=== PATIENT | female | born 1965 | race Two or more races ===

== ENCOUNTER 2017-09-18 12:39 | Emergency (ER) | payer SELFPAY ==
[2017-09-18 12:47] VITALS: TEMP 98.8; O2SAT 95
--- NOTE | 2017-09-18 13:33 | EDPHY ---
H & P Stated Complaint: cough x 3 weeks/body aches Time Seen by Provider: 09/18/17 13:33 HPI/ROS: CHIEF COMPLAINT: [ ] HISTORY OF PRESENT ILLNESS: [Need 4: Location, Duration, Severity, Quality, Context, Timing Modifying Factors, Associated S&S] REVIEW OF SYSTEMS: A comprehensive 10 point review of systems is otherwise negative aside from elements mentioned in the history of present illness. Source: Patient Exam Limitations: No limitations - Personal History LMP (Females 10-55): Now Current Tetanus/Diphtheria Vaccine: Yes - Medical/Surgical History Hx Asthma: Yes Hx Chronic Respiratory Disease: No Hx Diabetes: No Hx Cardiac Disease: Yes Hx Renal Disease: No Hx Cirrhosis: No Hx Alcoholism: No Hx HIV/AIDS: No Hx Splenectomy or Spleen Trauma: No Other PMH: some type of congenitao cardiac issue - Social History Smoking Status: Never smoked - Physical Exam Exam: General Appearance: [Alert, no distress] Eyes: [Pupils equal and round no pallor or injection] ENT, Mouth: [Mucous membranes moist] Respiratory: [There are no retractions, lungs are clear to auscultation] Cardiovascular: [Regular rate and rhythm] Gastrointestinal: [Abdomen is soft and nontender, no masses, bowel sounds normal] Neurological: [A&O, normal motor function, normal sensory exam, normal cranial nerves] Skin: [Warm and dry, no rashes] Musculoskeletal: [Neck is supple nontender] Extremities: [symmetrical, full range of motion] Psychiatric: [Patient is oriented X 3, there is no agitation] Constitutional: Initial Vital Signs Temperature (C) 37.1 C 09/18/17 12:42 Heart Rate 84 09/18/17 12:42 Respiratory Rate 18 09/18/17 12:42 Blood Pressure 117/54 L 09/18/17 12:42 O2 Sat (%) 95 09/18/17 12:42 O2 Delivery Mode Room Air Allergies/Adverse Reactions: No Known Allergies Allergy (Unverified 09/18/17 12:41) Home Medications: Medication Instructions Recorded Asmanex 09/18/17 Ventolin Hfa 09/18/17 Medical Decision Making - Data Points Laboratory Results: 09/18/17 12:50 Nasal Influenza A PCR Pending Nasal Influenza B PCR Pending Departure - Departure Referrals: NONE *PRIMARY CARE P,. [Primary Care Provider] - As per Instructions
--- NOTE | 2017-09-18 14:24 | EDPHY ---
H & P Time Seen by Provider: 09/18/17 13:33 HPI/ROS: CHIEF COMPLAINT: Cough, shortness of breath, headache HISTORY OF PRESENT ILLNESS: 51-year-old female presents to the emergency department with diffuse myalgias, cough, shortness of breath and headache. She states that she started feeling sick over 1 month ago. She feels that now she is having difficulty breathing. She has felt fevers. She was around her daughter who had similar symptoms although now her daughter is feeling better. No history of previous pneumonia. They traveled to [place] recently. She does have a history of chronic asthma and takes daily medication as well as Ventolin as needed. No flu shot this year although she has received a flu shot in past. No pain in her chest. She has diffuse headache as well as facial pain. REVIEW OF SYSTEMS: Constitutional: Fever, chills Eyes: No double or blurry vision. ENT: No sore throat. Respiratory: Cough, shortness of breath Cardiac: No chest pain. Gastrointestinal: No abdominal pain, vomiting or diarrhea. Genitourinary: No dysuria. Musculoskeletal: No neck or back pain. Skin: No rashes. Neurological: headache. Past Medical/Surgical History: Cardiomyopathy, asthma Primary care provider is at [facility] in [place] Social History: Visiting from [facility] [place] Smoking Status: Never smoked Physical Exam: General Appearance: Alert, no distress. 95% on room air. Temperature 37.1degrees, 117/54, heart rate 84 Eyes: Pupils equal and round. Extraocular motions are all intact. ENT: Mouth: Mucous membranes moist. Mild pain with palpation especially over the maxillary sinuses bilaterally. Respiratory: Occasional expiratory wheeze. No respiratory distress. Cardiovascular: Regular rate and rhythm. Gastrointestinal: Abdomen is soft and nontender, no masses, no rebound or guarding, bowel sounds normal. Neurological: Alert and oriented x 3, cranial nerves II through XII grossly intact Skin: Warm and dry, no rashes. Musculoskeletal: Nontender to palpate along the cervical, thoracic or lumbar spine. Neck is supple. Extremities: Full range of motion and no peripheral edema. Psychiatric: Patient is oriented X 3, there is no agitation. Constitutional: Initial Vital Signs Temperature (C) 37.1 C 09/18/17 12:42 Heart Rate 84 09/18/17 12:42 Respiratory Rate 18 09/18/17 12:42 Blood Pressure 117/54 L 09/18/17 12:42 O2 Sat (%) 95 09/18/17 12:42 O2 Delivery Mode Room Air Allergies/Adverse Reactions: No Known Allergies Allergy (Unverified 09/18/17 12:41) Home Medications: Medication Instructions Recorded Asmanex 09/18/17 Azithromycin [Zithromax tab 250 mg] 250 mg PO DAILY #6 tab 09/18/17 Ventolin Hfa 09/18/17 Medical Decision Making - Diagnostics Imaging Results: Imaging Impressions Chest X-Ray 09/18/17 14:01 Impression: Mild airways disease/bronchitis. No pneumonia or effusion. Imaging: I viewed and interpreted images myself ED Course/Re-evaluation: 51-year-old female presents to the emergency department with cough, myalgias, and headache. The patient has been symptomatic for over 1 month. The nurse had already performed influenza swab which was negative. I feel that her symptoms likely started as influenza. She has had productive cough for several weeks. Chest x-ray reveals no obvious pneumonia. She has a history of chronic asthma. She will be treated with Zithromax. Patient was instructed to return to the emergency department if she developed difficulty breathing, fever, pain in her chest, or if she felt worse in any way. The patient felt comfortable being discharged home. Encouraged close follow-up with her primary care provider. Differential Diagnosis: Including but not limited to bronchitis, pneumonia, influenza, viral upper respiratory infection, sinusitis - Data Points Laboratory Results: 09/18/17 12:50 Nasal Influenza A PCR NEGATIVE FOR FLU A (NEGATIVE) Nasal Influenza B PCR NEGATIVE FOR FLU B (NEGATIVE) Departure - Departure Disposition: Home, Routine, Self-Care Clinical Impression: Upper respiratory infection Qualifiers: URI type: unspecified viral URI Qualified Code(s): J06.9 - Acute upper respiratory infection, unspecified Condition: Good Instructions: Upper Respiratory Infection (ED) Additional Instructions: Zithromax as directed for 5 days. Albuterol inhaler to puffs every 4 hours for one week and then as needed. Continue Asmanex inhaler as well. Mucinex, guaifenesin, [id number] to help relieve congestion. Afrin nasal spray twice daily for the next 2-3 days to help relieve nasal congestion. Return to the emergency department if you develop shortness of breath, pain in your chest, or if you feel worse in any way. Referrals: Kimo Diehl MD [Medical Doctor] - 1-2 days without fail (Primary care provider recreation officer) Prescriptions: Azithromycin [Zithromax tab 250 mg] 250 mg PO DAILY #6 tab
[2017-09-18 15:18] VITALS: BP 118/67; PULSE 74; RESP 16
== END 2017-09-18 15:18 | disposition home or self-care (01) ==
DX: J06.9 Acute upper respiratory infection, unspecified (principal); J45.909 Unspecified asthma, uncomplicated